=== PATIENT | male | born 1960 | race Caucasian/White ===

== ENCOUNTER 2018-06-03 15:11 | Emergency (ER) | payer OTHER, MEDICARE ==
[2018-06-03 15:22] VITALS: BP 128/86
--- NOTE | 2018-06-03 15:43 | EDPHY ---
H & P Stated Complaint: wound to index finger of l hand Time Seen by Provider: 06/03/18 15:38 HPI/ROS: CHIEF COMPLAINT: Skin cracking HISTORY OF PRESENT ILLNESS: The patient is a 58-year-old man who has some dry skin and some cracking of the skin over his knuckle. It is the left hand index finger PCP joint dorsally. He states that he had been doing well using Band- Aids but then he ran out of Band-Aids. He tells me that he does not have any antibiotic creams to place on it. He came in today because he was concerned about infection and thought that he might need oral antibiotics. He has not had a fever. He has no pain with range of motion of his finger or tendons. Normal capillary refill. Severity: Minimal Modifying factors: Gradually worsening REVIEW OF SYSTEMS: Constitutional: denies: chills, fever, recent illness, recent injury EENTM: denies: blurred vision, double vision, nose congestion Respiratory: denies: cough, shortness of breath Cardiac: denies: chest pain, irregular heart rate, lightheadedness, palpitations Gastrointestinal/Abdominal: denies: abdominal pain, diarrhea, nausea, vomiting, blood streaked stools Genitourinary: denies: dysuria, frequency, hematuria, pain Musculoskeletal: denies: joint pain, muscle pain Skin: denies: lesions, rash, jaundice, bruising Neurological: denies: headache, numbness, paresthesia, tingling, dizziness, weakness Hematologic/Lymphatic: denies: blood clots, easy bleeding, easy bruising Immunologic/allergic: denies: HIV/AIDS, transplant 10 systems reviewed and negative except as noted EXAM: GENERAL: Well-appearing, well-nourished and in no acute distress. HEAD: Atraumatic, normocephalic. EYES: Pupils equal round and reactive to light, extraocular movements intact, sclera anicteric, conjunctiva are normal. ENT: TMs normal, nares patent, oropharynx clear without exudates. Moist mucous membranes. NECK: Normal range of motion, supple without lymphadenopathy or JVD. LUNGS: Breath sounds clear to auscultation bilaterally and equal. No wheezes rales or rhonchi. HEART: Regular rate and rhythm without murmurs, rubs or gallops. ABDOMEN: Soft, nontender, normoactive bowel sounds. No guarding, no rebound. No masses appreciated. BACK: No CVA tenderness, no spinal tenderness, step-offs or deformities EXTREMITIES: Patient does not have any significant erythema or swelling of his finger. He has dry cracked skin. It does not appear overly infected. No pain with passive movement. NEUROLOGICAL: Cranial nerves II through XII grossly intact. Normal speech, normal gait. 5/5 strength, normal movement in all extremities, normal sensation , normal reflexes PSYCH: Normal mood, normal affect. SKIN: Warm, dry, normal turgor, no visible rashes or lesions. Source: Patient Exam Limitations: No limitations - Personal History Current Tetanus Diphtheria and Acellular Pertussis (TDAP): Yes - Medical/Surgical History Hx Asthma: No Hx Chronic Respiratory Disease: No Hx Diabetes: No Hx Cardiac Disease: No Hx Renal Disease: No Hx Cirrhosis: No Hx Alcoholism: No Hx HIV/AIDS: No Hx Splenectomy or Spleen Trauma: No Other PMH: htn - Family History Significant Family History: No pertinent family hx - Social History Smoking Status: Never smoked Alcohol Use: Sober Drug Use: None Constitutional: Initial Vital Signs Temperature (C) 36.5 C 06/03/18 15:18 Heart Rate 63 06/03/18 15:18 Respiratory Rate 18 06/03/18 15:18 Blood Pressure 128/86 H 06/03/18 15:18 O2 Sat (%) 95 06/03/18 15:18 O2 Delivery Mode Room Air Allergies/Adverse Reactions: No Known Allergies Allergy (Unverified 06/03/18 15:16) Home Medications: Medication Instructions Recorded Crestor 06/03/18 Cymbalta 06/03/18 FENOFIBRATE 06/03/18 Hydrochlorothiazide 06/03/18 LaMICtal 06/03/18 Tricor 06/03/18 Valium 06/03/18 Medical Decision Making ED Course/Re-evaluation: I told the patient that I do not think he needs oral antibiotics. At 1st he was hesitant but eventually was happy that he would not need oral antibiotics. We dressed his cracked skin with antibiotic ointment and bandages and gave him some to take home and encouraged him to continue using them. We discussed indications for returning. Differential Diagnosis: Partial list of the Differential diagnosis considered include but were not limited to; dry skin, laceration, wound infection and although unlikely based on the history and physical exam, I also considered cellulitis, osteomyelitis, tenosynovitis, septic joint. I discussed these differential diagnoses and the plan with the patient as well as the usual and expected course. The patient understands that the diagnosis is provisional and that in medicine we are not always correct and that further workup is often warranted. Usual and customary warnings were given. All of the patient's questions were answered. The patient was instructed to return to the emergency department should the symptoms at all worsen or return, otherwise to followup with the physician as we discussed. Departure - Departure Disposition: Home, Routine, Self-Care Clinical Impression: Open wound of left index finger without damage to nail Qualifiers: Encounter type: initial encounter Qualified Code(s): S61.201A - Unspecified open wound of left index finger without damage to nail, initial encounter Condition: Good Instructions: Wound Infection (ED) Referrals: Zunilda Mcelroy MD [Primary Care Provider] - As per Instructions
== END 2018-06-03 16:17 | disposition home or self-care (01) ==
DX: L98.8 Other specified disorders of the skin and subcutaneous tissue (principal)